=== PATIENT | female | born 1985 | race Caucasian/White ===

== ENCOUNTER 2025-06-10 08:10 | Emergency (ER) | payer MEDICAID ==
[~2025-06-10] VITALS: Ht 152.4 cm; Wt 62.5 kg
[2025-06-10 08:19] VITALS: TEMP 97.1
[2025-06-10 09:03] LABS: LEUKOCYTE ESTERASE ,URINE NEGATIVE (Neg); NITRITES, URINE NEGATIVE (Neg); OCCULT BLOOD,URINE NEGATIVE (Neg)
[2025-06-10 09:04] LABS: UA COLLECTION TYPE CLN CATCH MIDSTREAM; URINE HCG NEGATIVE (NEG)
[2025-06-10 09:14] VITALS: BP 158/101; PULSE 80; RESP 16; O2SAT 100
--- NOTE | 2025-06-10 09:30 | Physician Documentation ---
History of Present Illness Chief Complaint: See Chief Complaint Stated Complaint: PREG TEST Time Seen by MD: 09:08 Primary Medical Doctor: None Source: patient Mode of Arrival: POV Exam Limitations: no limitations HPI Patient presents with multiple medical complaints. She states that she thinks she is because her blood pressure is high and last time she was her blood pressure was also high. She states her blood pressure has been high for the past couple of months. Furthermore, she is complaining of diarrhea, abdominal pain and nausea. She states every time she eats certain foods she vomits immediately and then has diarrhea. Foods that cause these symptoms include meat, bread and others. She states she is able to keep water down. Having diarrhea about 3 times per day. Last menstrual cycle was 1-1/2 months ago and states it was light leading her to believe that she is . Her abdominal pain is located in the bilateral lower quadrants in the pelvic area. Denies past medical history. No surgical history. States she drinks about three shots per day. Last drink was last night. Smokes tobacco occasionally. Uses methamphetamine with her boyfriend. States last use was three days ago. Was asked, but otherwise denies review of systems. Medication Reconciliation Allergies: Coded Allergies: Penicillins (Verified Allergy, Unknown, Hives, 06/10/25) Past Medical History Past Medical History: No Pertinent History Past Surgical History: no surgical history Other Past Family History: States family history of diabetes Smoking Status: Light Tobacco User Alcohol Use: Heavy Drug Use: methamphetamine Review of Systems All Other Systems at this time: Reviewed and Negative ROS Review of systems negative except specifically documented in HPI. Physical Exam Vital Signs: Temperature: 97.1, Source: Oral, Heart Rate: 80, Respiratory Rate: 16, BP: 158/101, Pulse Oximetry: 100, Weight: 62.500 Oxygen Flow Rate: 0 Pulse Oximetry Reflects: adequate oxygenation Physical Exam General: Awake, alert, oriented. Tremulous Neck: Supple. Normal range of motion. No JVD Respiratory: Lungs are clear to auscultation bilaterally. No respiratory distress. Chest: Normal shape and size. No accessory muscle use. Cardiovascular: Regular rate and rhythm. S1-S2. No murmur, gallop, rub. Gastrointestinal: Abdomen is soft. There is mild tenderness to palpation over the right pelvic area. Bowel sounds are positive in all four quadrants. Neurologic: Alert and oriented x4. Nonfocal Psychiatric: Anxious appearing. Skin: Normal color. Warm and dry. Progress Results/Orders Results/Orders Orders - [facility]ILD [facility] CARE PROVIDER Cbc/Diff (06/10/25 09:23) BMP (06/10/25 09:23) Ondansetron Disint. Tablet (Zofran Odt T (06/10/25 09:25) Vital Signs 06/10/25 06/10/25 08:19 09:14 Temp 97.1 Pulse 85 80 Resp 16 16 B/P (MAP) 162/106 158/101 (120) Pulse Ox 99 100 O2 Flow Rate 0 0 Laboratory Tests Test 06/10/25 08:30 Urine Specimen Description Cln catch midstream Urine Color Yellow Urine Clarity Clear Urine pH 6.0 Urine Specific [place] <=1.005 Urine Protein Negative Urine Glucose (UA) Negative Urine Ketones Negative Urine Occult Blood Negative Urine Nitrite Negative Urine Bilirubin Negative Urine Urobilinogen 0.2 Urine Leukocyte Esterase Negative Urine Culture Indicated Not ind Volume Urine Centrifuged 10 ml Urine HCG, Qualitative Negative Urine Comment Medical Decision Making Findings Patient presented with multiple medical complaints. Her complaints included hypertension, abdominal pain, nausea, vomiting, diarrhea. Her blood pressure was elevated. Risks were reviewed in detail. She was encouraged to follow up with primary care provider. Did not meet criteria for hypertensive urgency/emergency. Abdominal pain, nonspecific. No high-risk features including pain around the appendx, concern for bowel obstruction, inconsistent with diverticulitis. She has not no fevers or chills. She thought she might be . The test was completed and was negative. Labs were ordered and consideration for pelvic ultrasound to given the location of her pain after laboratory evaluation. Patient decided not to wait for further testing and eloped before treatment completed. Differential Dx:Considerations: Include: -Complete, - Incomplete, -Inevitable, -Missed, Appendicitis, Diverticular disease, Gastritis/PUD, Gastroenteritis, Hernia, Inflammatory BD, Ovarian cyst/torsion, PID Departure Time of Disposition: 09:50 Disposition: 07 LEFT AWOL/ELOPED Impression: Primary Impression: Abdominal pain Qualified Codes: R10.30 - Lower abdominal pain, unspecified Additional Impressions: Nausea & vomiting Qualified Codes: R11.2 - Nausea with vomiting, unspecified Diarrhea Qualified Codes: R19.7 - Diarrhea, unspecified Elevated blood pressure reading without diagnosis of hypertension Methamphetamine abuse Alcohol abuse Condition: Stable Referrals: NO PRIMARY CARE PROVIDER (PCP) Signature Scribe Signature: No scribe Attestation: The note accurately reflects work and decisions made by me.Traci Mckee NP 06/10/25 10:22 This note was created with the assistance of voice recognition software whereby errors in grammar, syntax, and/or spelling may have occurred despite active proofreading efforts by the author. Please do not hesitate to contact the provider for clarification or for questions regarding the content of this document. TRACI LOWRY NP Jun 10, 2025 09:30
[2025-06-10] MEDS: ondansetron 4mg rapidly disintigrating tab PO ONE (09:41)
== END 2025-06-10 09:42 | disposition left against medical advice (07) ==
LOC: ER 08:12
DX: R10.30 Lower abdominal pain, unspecified (principal); R11.2 Nausea with vomiting, unspecified; R19.7 Diarrhea, unspecified; F10.10 Alcohol abuse, uncomplicated; F15.10 Other stimulant abuse, uncomplicated; I10 Essential (primary) hypertension; F17.200 Nicotine dependence, unspecified, uncomplicated; Z88.0 Allergy status to penicillin; Y90.9 Presence of alcohol in blood, level not specified
CPT/HCPCS: 81003; 81025; 99283

== ENCOUNTER 2025-06-12 08:11 | Emergency (ER) | payer MEDICAID ==
[~2025-06-12] VITALS: Ht 152.4 cm; Wt 62.3 kg
[2025-06-12 08:15] VITALS: BP 137/94; PULSE 83; RESP 16; TEMP 97.6; O2SAT 99
[2025-06-12 09:17] LABS: URINE HCG NEGATIVE (NEG)
[2025-06-12 09:25] LABS: LEUKOCYTE ESTERASE ,URINE NEGATIVE (Neg); NITRITES, URINE NEGATIVE (Neg); OCCULT BLOOD,URINE TRACE-INTACT (Neg)
[2025-06-12 09:28] LABS: UA COLLECTION TYPE CLN CATCH MIDSTREAM
[2025-06-12 09:30] LABS: SQUAMOUS EPITHELIAL CELL,UR MANY /LPF (FEW)
[2025-06-12 09:32] LABS: URIC ACID CRYSTALS 4+ /HPF (NEGATIVE)
--- NOTE | 2025-06-12 09:48 | Physician Documentation ---
History of Present Illness ~ General Chief Complaint: See Chief Complaint Stated Complaint: SEE CHIEF COMPLAINT Time Seen by MD: 09:11 Primary Medical Doctor: None History of Present Illness Initial Comments Patient is seen today with complaints of stating she needs a test. Patient was just seen yesterday and has been seen multiple times in the recent past for same issue and her tests have returned negative. Patient states she needs an x-ray of her ovaries. Patient denies any chest pain or shortness of breath or nausea, vomiting, diarrhea. She has no other concern or complaint at this time Medication Reconciliation Allergies: Coded Allergies: Penicillins (Verified Allergy, Unknown, Hives, 06/12/25) Past Medical History Past Medical History: No Pertinent History Past Surgical History: no surgical history Other Past Family History: States family history of diabetes Alcohol Use: Heavy Drug Use: methamphetamine Review of Systems Constitutional: Denies: chills, fever, weakness Eyes: Denies: pain, blurred vision ENT: Denies: ear pain, nose pain, throat pain, mouth pain Respiratory: Denies: cough, shortness of breath Cardiovascular: Denies: chest pain, palpitations Gastrointestinal: Denies: abdominal pain, nausea, vomiting Genitourinary: Denies: burning, dysuria Female Genitalia: Denies: vaginal discharge, pelvic pain Neurological: Denies: headache, dizziness Musculoskeletal: Denies: pain, swelling Integumentary: Denies: rash, lesions Allergic/Immunologic: Denies: hives, itching Hematologic/Lymphatic: Denies: no symptoms reported Psychiatric: Denies: depression, anxiety Physical Exam Physical Exam Vital Signs: Temperature: 97.6, Source: Oral, Heart Rate: 83, Respiratory Rate: 16, BP: 137/94, Pulse Oximetry: 99, Weight: 62.300 Oxygen Flow Rate: 0 Physical Exam General: Awake and Alert, no acute distress. HEENT: Conjunctiva pink, Sclera clear, Mucus Membranes moist. Neck: Supple without masses and tenderness. Resp: Unlabored. Lungs clear to auscultation bilaterally. Extremities: No cyanosis,clubbing or edema. Skin: Warm and Dry. Progress Results/Orders Results/Orders Vital Signs 06/12/25 08:15 Temp 97.6 Pulse 83 Resp 16 B/P (MAP) 137/94 Pulse Ox 99 O2 Flow Rate 0 Laboratory Tests Test 06/12/25 08:30 Urine Specimen Description Cln catch midstream Urine Color Yellow Urine Clarity Slightly cloudy Urine pH 5.5 Urine Specific [place] >=1.030 Urine Protein Trace Urine Glucose (UA) Negative Urine Ketones Negative Urine Occult Blood Trace-intact Urine Nitrite Negative Urine Bilirubin Negative Urine Urobilinogen 0.2 Urine Leukocyte Esterase Negative Urine RBC 3-10 Urine WBC 5-10 H Urine Squamous Epithelial Cells Many Urine Transitional Epithelial Cells Few Urine Uric Acid Crystals 4+ Urine Bacteria 1+ Urine Culture Indicated Rejected for culture Volume Urine Centrifuged 10 ml Urine HCG, Qualitative Negative Urine Comment Medical Decision Making Findings Patient is seen today with complaints of stating she needs a test. Patient was just seen yesterday and has been seen multiple times in the recent past for same issue and her tests have returned negative. Patient states she needs an x-ray of her ovaries. Patient denies any abdominal pain or chest pain or shortness of breath or nausea, vomiting, diarrhea. She has no other concern or complaint at this time. Patient did leave the ER prior to further eval and testing and repeat test. I recommended patient follow up with primary care or [facility] for further eval and testing. ED with any worsening, concerning or changing symptoms. Departure Disposition: 07 LEFT AWOL/ELOPED Impression: Primary Impression: Concern about complication without diagnosis Additional Impression: Abdominal pain Qualified Codes: R10.9 - Unspecified abdominal pain Condition: Stable Additional Instructions: Patient did leave the ER prior to further eval and testing and repeat test. I recommended patient follow up with primary care or [facility] for further eval and testing. ED with any worsening, concerning or changing symptoms. Referrals: NO PRIMARY CARE PROVIDER (PCP) Signature Scribe Signature: No scribe Attestation: No scribe WILLIAM MOYER PAC Jun 12, 2025 09:48
== END 2025-06-12 11:24 | disposition left against medical advice (07) ==
LOC: ER 08:12
DX: O26.899 Other specified pregnancy related conditions, unspecified trimester (principal); Z3A.00 Weeks of gestation of pregnancy not specified
CPT/HCPCS: 81001; 81025; 99283